=== PATIENT | female | born 1955 | race Caucasian/White ===

== ENCOUNTER 2016-06-15 13:25 | Outpatient (RCR) | payer MEDICARE, OTHER | END 2016-07-07 | disposition home or self-care (01) | LOC: PTY 13:25 | DX: M50.30 Other cervical disc degeneration, unspecified cervical region (principal); M54.5 Low back pain | CPT/HCPCS: 97162; G0283; G8978; G8979 ==

== ENCOUNTER 2016-07-23 09:30 | Outpatient (RCR) | payer MEDICARE, OTHER | END 2016-08-04 | disposition home or self-care (01) | LOC: PTY 09:30 | DX: M50.30 Other cervical disc degeneration, unspecified cervical region (principal); M54.5 Low back pain; M75.02 Adhesive capsulitis of left shoulder; M47.812 Spondylosis without myelopathy or radiculopathy, cervical region; M47.816 Spondylosis without myelopathy or radiculopathy, lumbar region | CPT/HCPCS: 97110; 97163; G0283; G8978; G8979 ==

== ENCOUNTER 2016-08-10 10:48 | Outpatient (RCR) | payer MEDICARE, OTHER | END 2016-09-04 | disposition home or self-care (01) | LOC: PTY 10:48 | DX: M50.30 Other cervical disc degeneration, unspecified cervical region (principal); M54.5 Low back pain; M75.02 Adhesive capsulitis of left shoulder; M47.812 Spondylosis without myelopathy or radiculopathy, cervical region; M47.816 Spondylosis without myelopathy or radiculopathy, lumbar region | CPT/HCPCS: 97110; 97140; G0283; G8978; G8979 ==

== ENCOUNTER 2018-01-12 09:45 | Outpatient (RCR) | payer MEDICARE, OTHER | END 2018-02-04 | disposition home or self-care (01) | LOC: PTY 09:45 | DX: M48.00 Spinal stenosis, site unspecified (principal); M25.569 Pain in unspecified knee; M25.559 Pain in unspecified hip; F41.9 Anxiety disorder, unspecified | CPT/HCPCS: 97110; 97161; G8978; G8979 ==

== ENCOUNTER 2018-02-16 09:25 | Outpatient (RCR) | payer MEDICARE, OTHER | END 2018-03-06 | disposition home or self-care (01) | LOC: PTY 09:25 | DX: M54.2 Cervicalgia (principal); M25.559 Pain in unspecified hip; M25.569 Pain in unspecified knee; M48.00 Spinal stenosis, site unspecified; F41.9 Anxiety disorder, unspecified ==

== ENCOUNTER 2018-03-14 12:47 | Outpatient (RCR) | payer MEDICARE, OTHER | END 2018-04-06 | disposition home or self-care (01) | LOC: PTY 12:47 | DX: M54.2 Cervicalgia (principal); M25.559 Pain in unspecified hip; M25.569 Pain in unspecified knee; M48.00 Spinal stenosis, site unspecified; F41.9 Anxiety disorder, unspecified | CPT/HCPCS: 97110; G8978; G8979 ==